=== PATIENT | male | born 1980 | race Caucasian/White ===

== ENCOUNTER 2016-07-01 01:44 | Emergency (ER) | payer BC, OTHER ==
[~2016-07-01] VITALS: Ht 175.3 cm; Wt 73.5 kg
[2016-07-01 01:57] VITALS: Ht 175.3 cm; Wt 73.5 kg
== END 2016-07-01 02:55 | disposition left against medical advice (07) ==
LOC: FTE 01:44
DX: Z53.21 Procedure and treatment not carried out due to patient leaving prior to being seen by health care provider (principal)